=== PATIENT | female | born 1995 | race Caucasian/White ===

== ENCOUNTER 2018-01-10 04:52 | Emergency (ER) | payer OTHER | END 2018-01-10 07:37 | disposition home or self-care (01) | LOC: M ED 04:52 | DX: S93.602A Unspecified sprain of left foot, initial encounter (principal); X50.9XXA Other and unspecified overexertion or strenuous movements or postures, initial encounter; Y92.018 Other place in single-family (private) house as the place of occurrence of the external cause; Y93.02 Activity, running; Z88.0 Allergy status to penicillin; F17.210 Nicotine dependence, cigarettes, uncomplicated | CPT/HCPCS: 73630 ==

== ENCOUNTER 2018-05-14 11:09 | Emergency (ER) | payer OTHER ==
[2018-05-14] MEDS: ONDANSETRON 4MG/2ML VIAL (J2405) IV ×2 (12:12)
[2018-05-14] MEDS: NS 1,000 ML IV ×2 (12:13)
[2018-05-14 12:15] LABS: KETONE, URINE AUTO RFX NEGATIVE (NEGATIVE); MUCUS, URINE RFX MODERATE (NEGATIVE); RBC, URINE AUTO RFX 20 /HPF (0-3); SPECIFIC GRAVITY UR AUTO RFX 1.029 (1.002-1.035); SQUAM EPITHELIAL CELL UR AURFX 19 /HPF (0-6)
[2018-05-14 12:16] LABS: LEUKOCYTE ESTERASE UR AUTO RFX 2+ (NEGATIVE); NITRITE, URINE AUTO RFX POSITIVE (NEGATIVE); WBC, URINE AUTO RFX 101 /HPF (0-3)
[2018-05-14 12:36] LABS: BASO % 0.5 % (0.0-1.0); EOS # 0.2 10^3/uL (0.0-0.50); EOS % 2.4 % (0.0-3.0); HEMATOCRIT 39.1 % (36.0-47.0); HEMOGLOBIN 13.4 g/dl (12.0-15.5); IMMATURE GRANULOCYTE % 0.5 % (0-3.0); LYMPH # 1.7 10^3/uL (1.5-6.5); LYMPH % 26.3 % (24.0-44.0); MEAN CORPUSCULAR HEMOGLOBIN 30.9 pg (27.0-33.0); MEAN CORPUSCULAR HGB CONC 34.3 g/dl (32.0-36.5); MEAN CORPUSCULAR VOLUME 90.1 fl (80.0-96.0); MONO # 0.7 10^3/uL (0.0-0.8); MONO % 10.2 % (0.0-5.0); NEUTROPHILS # 3.8 10^3/uL (1.8-7.7); NEUTROPHILS % 60.1 % (36.0-66.0); PLATELET COUNT, AUTOMATED 327 10^3/uL (150-450); RED BLOOD COUNT 4.34 10^6/uL (4.00-5.40); WHITE BLOOD COUNT 6.4 10^3/uL (4.0-10.0)
[2018-05-14 13:12] LABS: ALBUMIN 3.9 GM/DL (3.2-5.2); ALBUMIN/GLOBULIN RATIO 1.18 (1.00-1.93); ALKALINE PHOSPHATASE 67 U/L (45-117); ALT/SGPT 18 U/L (12-78); AMYLASE 20 U/L (25-115); ANION GAP 4 MEQ/L (8-16); AST/SGOT 13 U/L (7-37); BILIRUBIN,DIRECT 0.2 MG/DL (0.0-0.2); BILIRUBIN,TOTAL 0.6 MG/DL (0.2-1.0); BLOOD UREA NITROGEN 13 MG/DL (7-18); CALCIUM LEVEL 8.6 MG/DL (8.5-10.1); CARBON DIOXIDE LEVEL 29 MEQ/L (21-32); CHLORIDE LEVEL 108 MEQ/L (98-107); CREATININE FOR GFR 0.84 MG/DL (0.55-1.30); GLUCOSE, FASTING 71 MG/DL (70-100); LIPASE 94 U/L (73-393); POTASSIUM SERUM 3.6 MEQ/L (3.5-5.1); SODIUM LEVEL 141 MEQ/L (136-145); TOTAL PROTEIN 7.2 GM/DL (6.4-8.2)
== END 2018-05-14 13:46 | disposition home or self-care (01) ==
LOC: M ED 11:09
DX: N30.00 Acute cystitis without hematuria (principal); Z72.0 Tobacco use; Z88.0 Allergy status to penicillin
CPT/HCPCS: J2405

== ENCOUNTER 2018-06-25 11:43 | Emergency (ER) | payer OTHER ==
[2018-06-25 12:45] LABS: BASO % 0.4 % (0.0-1.0); EOS # 0.1 10^3/uL (0.0-0.50); EOS % 2.3 % (0.0-3.0); HEMATOCRIT 43.8 % (36.0-47.0); HEMOGLOBIN 14.5 g/dl (12.0-15.5); IMMATURE GRANULOCYTE % 0.2 % (0-3.0); LYMPH # 1.5 10^3/uL (1.5-6.5); LYMPH % 27.9 % (24.0-44.0); MEAN CORPUSCULAR HEMOGLOBIN 30.3 pg (27.0-33.0); MEAN CORPUSCULAR HGB CONC 33.1 g/dl (32.0-36.5); MEAN CORPUSCULAR VOLUME 91.4 fl (80.0-96.0); MONO # 0.5 10^3/uL (0.0-0.8); MONO % 9.6 % (0.0-5.0); NEUTROPHILS # 3.1 10^3/uL (1.8-7.7); NEUTROPHILS % 59.6 % (36.0-66.0); PLATELET COUNT, AUTOMATED 314 10^3/uL (150-450); RED BLOOD COUNT 4.79 10^6/uL (4.00-5.40); RED CELL DISTRIBUTION WIDTH 11.9 % (11.5-14.5); WHITE BLOOD COUNT 5.2 10^3/uL (4.0-10.0)
[2018-06-25 12:48] LABS: KETONE, URINE AUTO RFX NEGATIVE (NEGATIVE); MUCUS, URINE RFX SMALL (NEGATIVE); RBC, URINE AUTO RFX 6 /HPF (0-3); SPECIFIC GRAVITY UR AUTO RFX 1.028 (1.002-1.035); SQUAM EPITHELIAL CELL UR AURFX 2 /HPF (0-6)
[2018-06-25 12:54] LABS: LEUKOCYTE ESTERASE UR AUTO RFX TRACE (NEGATIVE); NITRITE, URINE AUTO RFX POSITIVE (NEGATIVE); WBC, URINE AUTO RFX 12 /HPF (0-3)
[2018-06-25 13:11] LABS: ALBUMIN 4.2 GM/DL (3.2-5.2); ALBUMIN/GLOBULIN RATIO 1.35 (1.00-1.93); ALKALINE PHOSPHATASE 67 U/L (45-117); ALT/SGPT 22 U/L (12-78); ANION GAP 3 MEQ/L (8-16); AST/SGOT 12 U/L (7-37); BILIRUBIN,DIRECT 0.1 MG/DL (0.0-0.2); BILIRUBIN,TOTAL 0.5 MG/DL (0.2-1.0); BLOOD UREA NITROGEN 12 MG/DL (7-18); CARBON DIOXIDE LEVEL 30 MEQ/L (21-32); CHLORIDE LEVEL 108 MEQ/L (98-107); CREATININE FOR GFR 0.86 MG/DL (0.55-1.30); GLUCOSE, FASTING 85 MG/DL (70-100); POTASSIUM SERUM 4.8 MEQ/L (3.5-5.1); SODIUM LEVEL 141 MEQ/L (136-145); TOTAL PROTEIN 7.3 GM/DL (6.4-8.2)
== END 2018-06-25 13:37 | disposition home or self-care (01) ==
LOC: M ED 11:43
DX: N30.00 Acute cystitis without hematuria (principal); B96.20 Unspecified Escherichia coli [E. coli] as the cause of diseases classified elsewhere; K52.9 Noninfective gastroenteritis and colitis, unspecified; F17.210 Nicotine dependence, cigarettes, uncomplicated; Z88.0 Allergy status to penicillin
CPT/HCPCS: 80076

== ENCOUNTER 2018-07-09 15:04 | Emergency (ER) | payer OTHER | END 2018-07-09 18:23 | disposition home or self-care (01) | LOC: M ED 15:04 | DX: L03.114 Cellulitis of left upper limb (principal); L03.116 Cellulitis of left lower limb; Z72.0 Tobacco use; Z88.0 Allergy status to penicillin | CPT/HCPCS: 99283 ==

== ENCOUNTER → 2018-07-17 | Outpatient (REF) | payer OTHER ==
[2018-07-17 11:50] LABS: APPEARANCE, URINE CLOUDY (CLEAR); BACTERIA, URINE AUTO 1+ (NEGATIVE); BILIRUBIN, URINE AUTO NEGATIVE (NEGATIVE); BLOOD, URINE BLOOD NEGATIVE (NEGATIVE); COLOR, URINE AMBER (YELLOW); GLUCOSE, URINE (UA) AUTO NEGATIVE (NEGATIVE); KETONE, URINE AUTO NEGATIVE (NEGATIVE); LEUKOCYTE ESTERASE, URINE AUTO TRACE (NEGATIVE); MUCUS, URINE MODERATE (NEGATIVE); NITRITE, URINE AUTO POSITIVE (NEGATIVE); PROTEIN, URINE AUTO NEGATIVE (NEGATIVE); RBC, URINE AUTO 1 /HPF (0-3); SPECIFIC GRAVITY URINE AUTO 1.025 (1.002-1.035); SQUAMOUS EPITHELIAL CELL UR AU 5 /HPF (0-6); WBC, URINE AUTO 7 /HPF (0-3)
== END ==
LOC: M SMT 10:52
DX: Z87.440 Personal history of urinary (tract) infections (principal)
CPT/HCPCS: 81001

== ENCOUNTER 2018-07-18 10:58 | Emergency (ER) | payer OTHER | END 2018-07-18 11:33 | disposition home or self-care (01) | LOC: M ED 10:58 | DX: S39.012A Strain of muscle, fascia and tendon of lower back, initial encounter (principal); W00.1XXA Fall from stairs and steps due to ice and snow, initial encounter; Y92.9 Unspecified place or not applicable; Y93.9 Activity, unspecified; Y99.9 Unspecified external cause status; Z72.0 Tobacco use; Z88.0 Allergy status to penicillin | CPT/HCPCS: 99282 ==

== ENCOUNTER → 2018-07-19 | Outpatient (CLI) | payer OTHER | LOC: M RAD 09:06 | DX: Z87.440 Personal history of urinary (tract) infections (principal) | CPT/HCPCS: 76775 ==

== ENCOUNTER 2018-08-19 12:03 | Emergency (ER) | payer OTHER ==
[~2018-08-19] VITALS: Ht 165.1 cm; Wt 56.8 kg
[~2018-08-19 12:03] MED LIST: BACT800T5 PO; CLEO300C2 PO; CYCL10TA PO; MACR100C43 PO; PEPC1TAB2 PO; PRED20TA; PRED20TA PO; TGT25CAP; ZOFR4TAB14 PO
[2018-08-19] MEDS ORDERED: CLEO300C2 OR (14:22)
[2018-08-19] MEDS ORDERED: NAPR-50 PO (14:30)
[2018-08-19] MEDS ORDERED: CYCL10TA PO (14:30)
[2018-08-19 14:38] VITALS: BP 100/55
== END 2018-08-19 14:38 | disposition home or self-care (01) ==
LOC: M ED 12:03
DX: S46.911A Strain of unspecified muscle, fascia and tendon at shoulder and upper arm level, right arm, initial encounter (principal); Y92.009 Unspecified place in unspecified non-institutional (private) residence as the place of occurrence of the external cause; X50.0XXA Overexertion from strenuous movement or load, initial encounter

== ENCOUNTER → 2018-08-27 | Outpatient (REF) | payer OTHER ==
[~2018-08-27] MED LIST changes: +CLEO300C2 OR; +NAPR-50 PO
[2018-08-27 11:35] LABS: APPEARANCE, URINE CLOUDY (CLEAR); BACTERIA, URINE AUTO 3+ (NEGATIVE); BILIRUBIN, URINE AUTO NEGATIVE (NEGATIVE); BLOOD, URINE BLOOD 2+ (NEGATIVE); COLOR, URINE AMBER (YELLOW); GLUCOSE, URINE (UA) AUTO NEGATIVE (NEGATIVE); KETONE, URINE AUTO NEGATIVE (NEGATIVE); LEUKOCYTE ESTERASE, URINE AUTO 3+ (NEGATIVE); MUCUS, URINE LARGE (NEGATIVE); NITRITE, URINE AUTO POSITIVE (NEGATIVE); PROTEIN, URINE AUTO 1+ mg/dL (NEGATIVE); RBC, URINE AUTO 8 /HPF (0-3); SPECIFIC GRAVITY URINE AUTO 1.028 (1.002-1.035); SQUAMOUS EPITHELIAL CELL UR AU 3 /HPF (0-6); WBC, URINE AUTO 103 /HPF (0-3)
== END ==
LOC: M SMT 11:09
PROVIDERS: ATTEND Nurse Practitioner Women's Health
DX: N39.0 Urinary tract infection, site not specified (principal)

== ENCOUNTER 2018-09-26 11:22 | Emergency (ER) | payer OTHER ==
[~2018-09-26] VITALS: Ht 165.1 cm; Wt 56.8 kg
[2018-09-26 11:23] VITALS: BP 120/60
[2018-09-26] MEDS ORDERED: CIPR500T39 PO (11:28)
[2018-09-26] MEDS ORDERED: IBUP80TA (11:28)
[2018-09-26] MEDS ORDERED: ONDA8TAB7 (11:28)
[2018-09-26] MEDS ORDERED: PHENAZOPYRIDINE 100 MG TAB PO ONE (12:00)
[2018-09-26] MEDS ORDERED: CIPR-249 PO (12:22)
[2018-09-26] MEDS ORDERED: PYRI1TAB5 PO (12:23)
== END 2018-09-26 12:29 | disposition home or self-care (01) ==
LOC: M ED 11:22
DX: N39.0 Urinary tract infection, site not specified (principal); R30.0 Dysuria; Z79.899 Other long term (current) drug therapy; Z88.0 Allergy status to penicillin

== ENCOUNTER 2018-10-11 09:49 | Emergency (ER) | payer OTHER ==
[~2018-10-11] VITALS: Ht 165.1 cm; Wt 59.8 kg
[~2018-10-11 09:49] MED LIST changes: +CIPR-249 PO; +CIPR500T39 PO; +IBUP80TA; +ONDA8TAB7; +PYRI1TAB5 PO
[2018-10-11] MEDS ORDERED: PHEN-500 (09:55)
[2018-10-11] MEDS ORDERED: SULFAMETHOXAZOLE-TMP (09:55)
[2018-10-11] MEDS ORDERED: METH-855 (09:55)
[2018-10-11] MEDS ORDERED: KETOROLAC 30 MG/ML VIAL (J1885) IM ONE (10:15)
--- NOTE | 2018-10-11 11:15 | REP ---
Lumbar spine series: Five views. History: Low back pain. Injury. Findings: Lumbar vertebral body heights are preserved. Alignment is normal. No fracture or collapse is seen. Disc spaces are maintained. Pedicles and posterior elements are intact. There is no evidence of spondylolysis or spondylolisthesis. Sacrum and SI joints are unremarkable. Psoas margins are intact. Impression: Negative lumbar spine radiographs. Electronically Signed by Justin Rivas MD 10/11/2018 11:06 A
[2018-10-11] MEDS ORDERED: ROBA500T PO (11:25)
[2018-10-11 11:39] VITALS: BP 101/56
== END 2018-10-11 11:45 | disposition home or self-care (01) ==
LOC: M ED 09:49
DX: S39.012A Strain of muscle, fascia and tendon of lower back, initial encounter (principal); X50.0XXA Overexertion from strenuous movement or load, initial encounter; Y92.89 Other specified places as the place of occurrence of the external cause; Y93.9 Activity, unspecified; Y99.1 Military activity; Z87.440 Personal history of urinary (tract) infections; Z72.0 Tobacco use; Z79.899 Other long term (current) drug therapy; Z88.0 Allergy status to penicillin
CPT/HCPCS: 72110; 96372; 99283; J1885

== ENCOUNTER 2018-12-18 10:12 | Emergency (ER) | payer OTHER ==
[~2018-12-18] VITALS: Ht 165.1 cm; Wt 57.0 kg
[~2018-12-18 10:12] MED LIST changes: +METH-855; -NAPR-50 PO; +NAPR-837 PO; -PEPC1TAB2 PO; +PEPC40TA12 PO; +PHEN-500; +ROBA500T PO; +SULFAMETHOXAZOLE-TMP
[2018-12-18] MEDS ORDERED: TRIA25CR TOP (11:33)
[2018-12-18] MEDS ORDERED: BENA25CA4 PO (11:34)
[2018-12-18] MEDS ORDERED: CLEO300C2 PO (11:35)
[2018-12-18 11:41] VITALS: BP 107/69
[2018-12-20 00:06] LABS: Lyme Disease IgG/IgM Antibodie <0.91 ISR (0.00-0.90); Lyme Disease IgM Ab Quantitati <0.80 index (0.00-0.79)
== END 2018-12-18 11:47 | disposition home or self-care (01) ==
LOC: M ED 10:12
DX: S40.862A Insect bite (nonvenomous) of left upper arm, initial encounter (principal); X58.XXXA Exposure to other specified factors, initial encounter; Y92.138 Other place on military base as the place of occurrence of the external cause; Y93.89 Activity, other specified; Y99.1 Military activity; Z88.0 Allergy status to penicillin

== ENCOUNTER 2019-01-21 11:53 | Emergency (ER) | payer OTHER ==
[~2019-01-21] VITALS: Ht 165.1 cm; Wt 57.7 kg
[~2019-01-21 11:53] MED LIST changes: +BENA25CA4 PO; +TRIA25CR TOP
[2019-01-21] MEDS ORDERED: IBUP-1022 PO (12:01)
[2019-01-21] MEDS ORDERED: KETOROLAC 60 MG/2 ML VIAL (J1885) IM ONE (14:15)
[2019-01-21] MEDS ORDERED: CYCL10TA PO (14:16)
[2019-01-21 14:51] VITALS: BP 115/70
== END 2019-01-21 14:52 | disposition home or self-care (01) ==
LOC: M ED 11:53
DX: M47.9 Spondylosis, unspecified (principal); M19.90 Unspecified osteoarthritis, unspecified site; G89.29 Other chronic pain; M54.9 Dorsalgia, unspecified; Z72.0 Tobacco use; Z88.0 Allergy status to penicillin
CPT/HCPCS: 96372; 99283; J1885

== ENCOUNTER → 2019-01-30 | Outpatient (REF) | payer OTHER ==
[~2019-01-30] MED LIST changes: +IBUP-1022 PO
[2019-01-30 13:48] LABS: APPEARANCE, URINE CLOUDY (CLEAR); BACTERIA, URINE AUTO 2+ (NEGATIVE); BILIRUBIN, URINE AUTO NEGATIVE (NEGATIVE); BLOOD, URINE BLOOD 1+ (NEGATIVE); COLOR, URINE YELLOW (YELLOW); GLUCOSE, URINE (UA) AUTO NEGATIVE (NEGATIVE); KETONE, URINE AUTO NEGATIVE (NEGATIVE); LEUKOCYTE ESTERASE, URINE AUTO 1+ (NEGATIVE); MUCUS, URINE SMALL (NEGATIVE); NITRITE, URINE AUTO NEGATIVE (NEGATIVE); PROTEIN, URINE AUTO NEGATIVE (NEGATIVE); RBC, URINE AUTO 3 /HPF (0-3); SPECIFIC GRAVITY URINE AUTO 1.026 (1.002-1.035); SQUAMOUS EPITHELIAL CELL UR AU 23 /HPF (0-6); WBC, URINE AUTO 13 /HPF (0-3)
== END ==
LOC: M SMT 13:06
PROVIDERS: ATTEND Nurse Practitioner Women's Health
DX: R30.0 Dysuria (principal)

== ENCOUNTER 2019-03-10 11:03 | Emergency (ER) | payer OTHER ==
[~2019-03-10] VITALS: Ht 165.1 cm; Wt 60.0 kg
[~2019-03-10 11:03] MED LIST changes: +ONDA8TAB10; -ONDA8TAB7; -TGT25CAP; +[UNRECOGNIZED DRUG - CODE]
[2019-03-10] MEDS ORDERED: METH1TAB40 (11:30)
[2019-03-10] MEDS ORDERED: IBUP80TA (11:30)
[2019-03-10] MEDS ORDERED: KETOROLAC 60 MG/2 ML VIAL (J1885) IM ONE (14:00)
[2019-03-10] MEDS ORDERED: KETO10TAB PO (14:43)
[2019-03-10] MEDS ORDERED: VOLT1GEL15 TOP (14:43)
[2019-03-10 14:50] VITALS: BP 110/60
== END 2019-03-10 14:50 | disposition home or self-care (01) ==
LOC: M ED 11:03
DX: G89.29 Other chronic pain (principal); M54.5 Low back pain; Z72.0 Tobacco use; Z88.0 Allergy status to penicillin
CPT/HCPCS: 96372; 99283; J1885

== ENCOUNTER 2019-03-31 12:05 | Emergency (ER) | payer OTHER ==
[~2019-03-31] VITALS: Ht 165.1 cm; Wt 56.8 kg
[2019-03-31 12:05] VITALS: BP 111/64
[~2019-03-31 12:05] MED LIST changes: -ONDA8TAB10; +ONDA8TAB7
== END 2019-03-31 14:51 | disposition left against medical advice (07) ==
LOC: M ED 12:05
DX: Z53.21 Procedure and treatment not carried out due to patient leaving prior to being seen by health care provider (principal)

== ENCOUNTER → 2019-03-31 | Outpatient (REF) | payer OTHER ==
[~2019-03-31] MED LIST changes: +KETO10TAB PO; +METH1TAB40; +VOLT1GEL15 TOP
== END ==
LOC: M SMT 17:02
PROVIDERS: ATTEND Specialist
DX: N39.0 Urinary tract infection, site not specified (principal)